=== PATIENT | female | born 1980 | race Caucasian/White ===

== ENCOUNTER 2018-01-16 02:03 | Emergency (ER) | payer BC ==
[~2018-01-16] VITALS: Ht 149.9 cm; Wt 85.3 kg
[~2018-01-16 02:03] MED LIST: ACETAMINOPHEN-1 EAC1 PO; ACYCLOVIR 800800 MG PO; ADVAIR 100-501 EACH INH; ADVAIR HFA115 MCG/21; ANTIVERT25 MG PO; AUGMENTIN 875-1 EACH PO; AVELOX 400 MG400 M1; AZITHROMYCIN 2250 MG PO; BENTYL20 MG PO; BYETTA PEN 11 PENIN1; BYETTA PEN 11 PENIN2; CARVEDILOL25 MG PO; CENTRUM SILVER1 EAC2 PO; CEPHALEXIN 500500 M3 PO; CIPRO250 M1 PO; CITRATE OF MAG296 ML PO; DIFLUCAN150 MG PO; DOXYCYCLINE 10100 MG PO; DUONEB 2.5-0.5 M3 ML INH; EDECRIN PO; FLOMAX0.4 MG PO; FLONASE 0.05%50 MCG NASAL; LEVAQUIN 500 M500 MG PO; LISINOPRIL10 MG PO; MEDROL4 MG; MEDROLDOSEPACK PO; NORCO 5-325 TA1 EAC1 PO; NORCO 5-325 TA1 EACH PO; PHENERGAN 25 MG25 M1 PO; PREDNISONE 10 M10 M1 PO; PREDNISONE 20 M20 M1 PO; PREDNISONE 20 M20 MG PO; PROMETHAZINE D480 ML PO; PROTONIX40 M2 PO; PROVENTIL HFA6.7 G1 INH; SEASONALE1 EACH; SINGULAIR 10 MG10 M1 PO; TUMS PO; TYLENOL325 MG PO; VENTOLIN HFA 1818 GM; VENTOLIN HFA 1818 GM INH; VITAMIN B-12500 MCG PO; VITAMINC500 PO; XANAX 0.5 MG0.5 MG; ZOFRAN ODT4 MG PO; ZOFRAN4 MG PO; ZOLOFT25 MG PO; ZYRTEC10 MG PO; [UNRECOGNIZED DRUG - OTHER] PO
[2018-01-16 02:44] LABS: ABSOLUTE BASOPHILS 0.1 thou/uL (0.0-0.2); ABSOLUTE EOSINOPHILS 0.1 thou/uL (0.0-0.7); ABSOLUTE LYMPHOCYTES 5.5 thou/uL (0.8-5.3); ABSOLUTE MONOCYTES 0.9 thou/uL (0.0-1.2); ABSOLUTE NEUTROPHILS 7.9 thou/uL (1.6-8.1); BASOPHILS 0.6 %; EOSINOPHILS 0.7 %; HEMATOCRIT 37.8 % (37.0-47.0); HEMOGLOBIN 12.4 gm/dL (12.0-15.0); LYMPHOCYTES 38.1 %; MCH 29.4 pg (26.0-34.0); MCHC 32.7 g/dL (28.0-37.0); MCV 90.1 fL (80.0-100.0); MONOCYTES 6.4 %; MPV 7.6 fl. (7.2-11.1); NUCLEATED RBCS 0 /100WBC; PLATELET COUNT* 238 thou/uL (150-400); POLYS 54.2 %; RDW-CV 14.5 % (10.5-14.5); WBC 14.5 thou/uL (4.0-11.0)
[2018-01-16 02:45] LABS: URINE BILIRUBIN NEGATIVE (Negative); URINE BLOOD NEGATIVE (Negative); URINE CLARITY CLEAR; URINE COLOR YELLOW; URINE GLUCOSE-RANDOM NEGATIVE (Negative); URINE KETONES NEGATIVE (Negative); URINE LEUKOCYTES-REFLEX NEGATIVE (Negative); URINE NITRITE-REFLEX NEGATIVE (Negative); URINE PROTEIN NEGATIVE (Negative); URINE SPECIFIC GRAVITY 1.015 (1.005-1.030); URINE UROBILINOGEN 0.2 E.U./dl (0.2-1.0)
[2018-01-16 02:48] LABS: CALCIUM 9.2 mg/dL (8.5-10.1); CREATININE 0.8 mg/dL (0.6-1.3); POTASSIUM 3.7 mmol/L (3.5-5.1)
[2018-01-16 02:59] LABS: ALBUMIN 3.2 g/dL (3.4-5.0); TOTAL BILIRUBIN 0.2 mg/dL (<0.1-1.0); TOTAL PROTEIN 6.5 g/dL (6.4-8.2)
[2018-01-16] MEDS ORDERED: TUSSIONEX PENN115 ML PO (03:28)
[2018-01-16 03:53] VITALS: BP 120/49
== END 2018-01-16 03:56 | disposition home or self-care (01) ==
LOC: M.ERS 02:03
PROVIDERS: Emergency Medicine
DX: J40 Bronchitis, not specified as acute or chronic (principal); J45.909 Unspecified asthma, uncomplicated; I10 Essential (primary) hypertension; E66.9 Obesity, unspecified; K21.9 Gastro-esophageal reflux disease without esophagitis; Z90.49 Acquired absence of other specified parts of digestive tract; Z98.890 Other specified postprocedural states; Z68.38 Body mass index [BMI] 38.0-38.9, adult

== ENCOUNTER 2018-05-26 19:30 | Emergency (ER) | payer BC, OTHER ==
[~2018-05-26] VITALS: Ht 149.9 cm; Wt 81.6 kg
[~2018-05-26 19:30] MED LIST changes: +TUSSIONEX PENN115 ML PO
[2018-05-26] MEDS ORDERED: BENTYL 10 MG CA10 MG PO (19:38)
[2018-05-26 20:13] LABS: CALCIUM 9.5 mg/dL (8.5-10.1); CREATININE 0.8 mg/dL (0.6-1.3); POTASSIUM 4.1 mmol/L (3.5-5.1)
[2018-05-26 20:18] LABS: ALBUMIN 3.8 g/dL (3.4-5.0); TOTAL BILIRUBIN 0.5 mg/dL (<0.1-1.0); TOTAL PROTEIN 7.9 g/dL (6.4-8.2)
[2018-05-26 20:30] LABS: ABSOLUTE BASOPHILS 0.1 thou/uL (0.0-0.2); ABSOLUTE EOSINOPHILS 0.1 thou/uL (0.0-0.7); ABSOLUTE LYMPHOCYTES 3.1 thou/uL (0.8-5.3); ABSOLUTE MONOCYTES 0.9 thou/uL (0.0-1.2); ABSOLUTE NEUTROPHILS 7.1 thou/uL (1.6-8.1); BASOPHILS 0.5 %; EOSINOPHILS 1.1 %; HEMATOCRIT 39.5 % (37.0-47.0); LYMPHOCYTES 27.7 %; MCH 29.5 pg (26.0-34.0); MCHC 32.9 g/dL (28.0-37.0); MCV 89.8 fL (80.0-100.0); MONOCYTES 8.1 %; MPV 8.7 fl. (7.2-11.1); NUCLEATED RBCS 0 /100WBC; PLATELET COUNT* 214 thou/uL (150-400); POLYS 62.6 %; RDW-CV 13.2 % (10.5-14.5); WBC 11.3 thou/uL (4.0-11.0)
[2018-05-26 21:12] LABS: URINE BILIRUBIN NEGATIVE (Negative); URINE BLOOD NEGATIVE (Negative); URINE CLARITY CLEAR; URINE COLOR YELLOW; URINE GLUCOSE-RANDOM NEGATIVE (Negative); URINE KETONES NEGATIVE (Negative); URINE LEUKOCYTES NEGATIVE (Negative); URINE NITRITE NEGATIVE (Negative); URINE PROTEIN NEGATIVE (Negative); URINE SPECIFIC GRAVITY <= 1.005 (1.005-1.030); URINE UROBILINOGEN 0.2 E.U./dl (0.2-1.0)
[2018-05-26] MEDS ORDERED: TRAMADOL 50 MG50 MG PO (21:28)
[2018-05-26] MEDS ORDERED: ZOFRAN ODT4 MG PO (21:28)
[2018-05-26 22:00] VITALS: BP 128/85
== END 2018-05-26 22:01 | disposition home or self-care (01) ==
LOC: M.ERS 19:30
PROVIDERS: Physician Assistant
DX: R19.7 Diarrhea, unspecified (principal); R10.12 Left upper quadrant pain; J45.909 Unspecified asthma, uncomplicated; I10 Essential (primary) hypertension; Z90.49 Acquired absence of other specified parts of digestive tract; K21.9 Gastro-esophageal reflux disease without esophagitis; E66.9 Obesity, unspecified; Z68.36 Body mass index [BMI] 36.0-36.9, adult; Z88.1 Allergy status to other antibiotic agents; Z88.2 Allergy status to sulfonamides

== ENCOUNTER 2019-07-18 09:04 | Emergency (ER) | payer BC ==
[~2019-07-18] VITALS: Ht 149.9 cm; Wt 97.4 kg
[~2019-07-18 09:04] MED LIST changes: +BENTYL 10 MG CA10 MG PO; +TRAMADOL 50 MG50 MG PO
[2019-07-18] MEDS ORDERED: WELLBUTRIN SR100 MG PO (09:09)
[2019-07-18 09:18] LABS: ABSOLUTE BASOPHILS 0.1 thou/uL (0.0-0.2); ABSOLUTE EOSINOPHILS 0.2 thou/uL (0.0-0.7); ABSOLUTE LYMPHOCYTES 2.6 thou/uL (0.8-5.3); ABSOLUTE MONOCYTES 0.6 thou/uL (0.0-1.2); ABSOLUTE NEUTROPHILS 4.4 thou/uL (1.6-8.1); EOSINOPHILS 2.4 %; HEMATOCRIT 36.6 % (37.0-47.0); HEMOGLOBIN 12.3 gm/dL (12.0-15.0); LYMPHOCYTES 32.6 %; MCHC 33.7 g/dL (28.0-37.0); MCV 86.2 fL (80.0-100.0); MONOCYTES 7.6 %; MPV 7.7 fl. (7.2-11.1); NUCLEATED RBCS 0 /100WBC; PLATELET COUNT* 250 thou/uL (150-400); POLYS 56.4 %; RBC 4.25 mil/uL (4.20-5.00); WBC 7.8 thou/uL (4.0-11.0)
[2019-07-18 09:28] LABS: ANION GAP 7 mmol/L (7-16); BUN 8 mg/dL (7-18); CALCIUM 9.3 mg/dL (8.5-10.1); CHLORIDE 104 mmol/L (98-107); CO2 28 mmol/L (21-32); CREATININE 0.8 mg/dL (0.6-1.3); GLUCOSE 89 mg/dL (70-99); POTASSIUM 3.8 mmol/L (3.5-5.1); SODIUM 139 mmol/L (136-145)
[2019-07-18 09:31] LABS: PROTIME 10.3 Seconds (9.20-11.50)
[2019-07-18 09:37] LABS: ALBUMIN 3.5 g/dL (3.4-5.0); ALKALINE PHOSPHATASE 128 U/L (46-116); LIPASE 131 U/L (73-393); SGOT 15 U/L (15-37); SGPT 18 U/L (30-65); TOTAL BILIRUBIN 0.4 mg/dL (<0.1-1.0); TOTAL PROTEIN 7.3 g/dL (6.4-8.2); TROPONIN-I LEVEL <0.06 ng/mL (<0.06)
[2019-07-18] MEDS ORDERED: CARAFATE 1 GM TA1 GM PO (13:09)
[2019-07-18] MEDS ORDERED: OMEPRAZOLE 20 M20 M1 PO (13:09)
[2019-07-18 13:22] VITALS: BP 120/78
--- NOTE | 2019-07-18 16:25 | EKG ---
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 : 1980 Requested By: Antonia Jin Order Number: [id number] MD: Chang Leger Measurements Intervals [place] Rate: 66 P: 9 WI: 149 QRS: -8 QRSD: 85 T: 11 QT: 380 QTc: 399 Interpretive Statements Sinus rhythm Low voltage, precordial leads Abnormal R-wave progression, early transition Compared to ECG 01/13/2016 13:42:56 No significant changes Electronically Signed On 07-18-2019 16:25:48 CDT by Chang Leger [email or web address] <ELECTRONICALLY SIGNED> By: Chang Leger MD, [facility] 07/18/19 1625 7 Chang Leger MD, [facility] /EPI
== END 2019-07-18 13:23 | disposition home or self-care (01) ==
LOC: M.ERS 09:04
PROVIDERS: Personal Emergency Response Attendant
DX: K21.9 Gastro-esophageal reflux disease without esophagitis (principal); Z88.1 Allergy status to other antibiotic agents; Z88.2 Allergy status to sulfonamides; Z88.8 Allergy status to other drugs, medicaments and biological substances; Z90.49 Acquired absence of other specified parts of digestive tract; Z98.890 Other specified postprocedural states

== ENCOUNTER 2019-10-12 20:20 | Emergency (ER) | payer BC ==
[~2019-10-12] VITALS: Ht 149.9 cm; Wt 90.7 kg
[~2019-10-12 20:20] MED LIST changes: +CARAFATE 1 GM TA1 GM PO; +OMEPRAZOLE 20 M20 M1 PO; +WELLBUTRIN SR100 MG PO
[2019-10-12] MEDS ORDERED: NORCO 5-325 TA1 EAC1 PO (21:15)
[2019-10-12 21:19] VITALS: BP 133/85
== END 2019-10-12 21:20 | disposition home or self-care (01) ==
LOC: M.ERS 20:20
DX: M25.532 Pain in left wrist (principal); Z88.1 Allergy status to other antibiotic agents; Z88.2 Allergy status to sulfonamides; Z88.8 Allergy status to other drugs, medicaments and biological substances; Z90.49 Acquired absence of other specified parts of digestive tract; Z98.890 Other specified postprocedural states

== ENCOUNTER 2020-07-11 16:12 | Observation (INO) | payer BC ==
[~2020-07-11] VITALS: Ht 149.9 cm; Wt 108.9 kg
[2020-07-11 16:20] VITALS: BP 132/75
[2020-07-11] MEDS ORDERED: VICODIN HP 10-1 EAC1 PO (16:23)
[2020-07-11] MEDS ORDERED: LORATIDINE 10 M10 M1 PO (16:23)
[2020-07-11] MEDS ORDERED: PROCHAMBER1 EACH INH (16:23)
[2020-07-11 16:58] LABS: ABSOLUTE BASOPHILS 0.1 thou/uL (0.0-0.2); ABSOLUTE EOSINOPHILS 0.1 thou/uL (0.0-0.7); ABSOLUTE MONOCYTES 0.8 thou/uL (0.0-1.2); BASOPHILS 0.9 %; EOSINOPHILS 0.8 %; HEMATOCRIT 33.3 % (37.0-47.0); HEMOGLOBIN 11.2 gm/dL (12.0-15.0); LYMPHOCYTES 27.1 %; MCH 28.6 pg (26.0-34.0); MCHC 33.6 g/dL (28.0-37.0); MONOCYTES 7.5 %; MPV 7.8 fl. (7.2-11.1); NUCLEATED RBCS 0 /100WBC; PLATELET COUNT* 225 thou/uL (150-400); POLYS 63.7 %; RBC 3.92 mil/uL (4.20-5.00)
[2020-07-11 17:08] LABS: CALCIUM 8.6 mg/dL (8.5-10.1); CREATININE 0.9 mg/dL (0.6-1.3); POTASSIUM 3.7 mmol/L (3.5-5.1)
[2020-07-11 17:11] LABS: APTT 25.4 Seconds (25.0-31.3); PROTIME 10.6 Seconds (9.20-11.50)
[2020-07-11 17:18] LABS: ALBUMIN 3.2 g/dL (3.4-5.0); MAGNESIUM 1.8 mg/dL (1.8-2.4); TOTAL BILIRUBIN 0.3 mg/dL (<0.1-1.0); TOTAL PROTEIN 6.7 g/dL (6.4-8.2)
[2020-07-11 20:02] VITALS: BP 141/72
[2020-07-11 20:05] VITALS: BP 135/67
[2020-07-11] MEDS ORDERED: CARVEDILOL25 MG PO (22:30)
[2020-07-11] MEDS ORDERED: FLONASE 0.05%50 MCG NASAL (22:31)
[2020-07-12 00:28] VITALS: BP 131/68
[2020-07-12 05:05] VITALS: BP 131/68
[2020-07-12 05:10] LABS: ABSOLUTE BASOPHILS 0.1 thou/uL (0.0-0.2); ABSOLUTE EOSINOPHILS 0.1 thou/uL (0.0-0.7); ABSOLUTE LYMPHOCYTES 3.4 thou/uL (0.8-5.3); ABSOLUTE MONOCYTES 0.7 thou/uL (0.0-1.2); ABSOLUTE NEUTROPHILS 4.8 thou/uL (1.6-8.1); BASOPHILS 0.7 %; EOSINOPHILS 0.8 %; HEMATOCRIT 32.6 % (37.0-47.0); HEMOGLOBIN 11.1 gm/dL (12.0-15.0); LYMPHOCYTES 37.3 %; MCHC 34.2 g/dL (28.0-37.0); MCV 84.8 fL (80.0-100.0); MONOCYTES 8.2 %; NUCLEATED RBCS 0 /100WBC; PLATELET COUNT* 219 thou/uL (150-400); RBC 3.84 mil/uL (4.20-5.00); RDW-CV 15.7 % (10.5-14.5); WBC 9.1 thou/uL (4.0-11.0)
[2020-07-12 05:15] LABS: CALCIUM 8.6 mg/dL (8.5-10.1); CREATININE 0.8 mg/dL (0.6-1.3); POTASSIUM 3.6 mmol/L (3.5-5.1)
[2020-07-12 08:00] VITALS: BP 146/93
[2020-07-12] MEDS ORDERED: OMEPRAZOLE40 MG PO (08:42)
[2020-07-12 11:10] VITALS: BP 146/93
[2020-07-12] MEDS ORDERED: CARAFATE 1 GM TA1 G1 PO (11:27)
--- NOTE | 2020-07-12 16:12 | EKG ---
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 : 1980 Requested By: Lee Collier Order Number: [id number] MD: Chang Leger Measurements Intervals [place] Rate: 63 P: 7 [place]: 143 QRS: -6 QRSD: 84 T: -2 QT: 398 QTc: 408 Interpretive Statements Sinus rhythm Low voltage, precordial leads Borderline T abnormalities, inferior leads Compared to ECG 07/18/2019 09:08:13 T-wave abnormality now present Electronically Signed On 07-12-2020 16:12:01 CDT by Chang Leger [email or web address] <ELECTRONICALLY SIGNED> By: Chang Leger MD, [facility] 07/12/20 1612 1624 1624 Chang Leger MD, [facility]ACC /EPI
== END 2020-07-12 12:30 | disposition home or self-care (01) ==
LOC: M.ERS 16:12 → M.TBA-ER 17:54 → M.2W 17:54
PROVIDERS: Emergency Medicine Emergency Medical Services; ADMIT Internal Medicine; ATTEND Internal Medicine
DX: R07.89 Other chest pain (principal); E66.01 Morbid (severe) obesity due to excess calories; I42.9 Cardiomyopathy, unspecified; Z68.42 Body mass index [BMI] 45.0-49.9, adult; Z79.899 Other long term (current) drug therapy; Z90.3 Acquired absence of stomach [part of]; Z98.890 Other specified postprocedural states; Z20.828 Contact with and (suspected) exposure to other viral communicable diseases

== ENCOUNTER 2020-10-02 02:59 | Emergency (ER) | payer BC ==
[~2020-10-02] VITALS: Ht 149.9 cm; Wt 108.9 kg
--- NOTE | ~2020-10-02 | EKG ---
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
[~2020-10-02 02:59] MED LIST changes: +CARAFATE 1 GM TA1 G1 PO; +LORATIDINE 10 M10 M1 PO; +OMEPRAZOLE40 MG PO; +PROCHAMBER1 EACH INH; +VICODIN HP 10-1 EAC1 PO
[2020-10-02 03:23] VITALS: BP 132/79
[2020-10-02] MEDS ORDERED: ZPAK PO (03:33)
[2020-10-02] MEDS ORDERED: PREDNISONE 20 M20 M1 PO (03:33)
== END 2020-10-02 03:43 | disposition home or self-care (01) ==
LOC: M.ERS 02:59
DX: U07.1 COVID-19 (principal); K21.9 Gastro-esophageal reflux disease without esophagitis; Z88.2 Allergy status to sulfonamides; Z88.1 Allergy status to other antibiotic agents; Z88.8 Allergy status to other drugs, medicaments and biological substances; Z98.890 Other specified postprocedural states; Z90.49 Acquired absence of other specified parts of digestive tract

== ENCOUNTER 2021-06-19 18:28 | Emergency (ER) | payer BC ==
[~2021-06-19] VITALS: Ht 149.9 cm; Wt 81.7 kg
[~2021-06-19 18:28] MED LIST changes: +ZPAK PO
[2021-06-19] MEDS ORDERED: TOPROL XL25 MG PO (18:35)
[2021-06-19 19:48] LABS: URINE BILIRUBIN NEGATIVE (Negative); URINE BLOOD NEGATIVE (Negative); URINE CLARITY CLEAR; URINE COLOR YELLOW; URINE GLUCOSE-RANDOM NEGATIVE (Negative); URINE KETONES NEGATIVE (Negative); URINE LEUKOCYTES-REFLEX NEGATIVE (Negative); URINE NITRITE-REFLEX NEGATIVE (Negative); URINE PROTEIN NEGATIVE (Negative); URINE SPECIFIC GRAVITY 1.015 (1.005-1.030); URINE UROBILINOGEN 0.2 E.U./dl (0.2-1.0)
[2021-06-19 19:50] LABS: ABSOLUTE BASOPHILS 0.1 thou/uL (0.0-0.2); ABSOLUTE EOSINOPHILS 0.1 thou/uL (0.0-0.7); ABSOLUTE LYMPHOCYTES 2.4 thou/uL (0.8-5.3); ABSOLUTE MONOCYTES 0.7 thou/uL (0.0-1.2); ABSOLUTE NEUTROPHILS 5.9 thou/uL (1.6-8.1); BASOPHILS 0.6 %; EOSINOPHILS 0.8 %; HEMATOCRIT 35.8 % (37.0-47.0); HEMOGLOBIN 11.7 gm/dL (12.0-15.0); LYMPHOCYTES 26.3 %; MCH 27.7 pg (26.0-34.0); MCHC 32.7 g/dL (28.0-37.0); MCV 84.6 fL (80.0-100.0); MONOCYTES 7.6 %; MPV 8.4 fl. (7.2-11.1); NUCLEATED RBCS 0 /100WBC; PLATELET COUNT* 261 thou/uL (150-400); POLYS 64.7 %; RBC 4.23 mil/uL (4.20-5.00); RDW-CV 15.6 % (10.5-14.5); WBC 9.1 thou/uL (4.0-11.0)
[2021-06-19 20:00] LABS: CALCIUM 9.3 mg/dL (8.5-10.1); CREATININE 0.9 mg/dL (0.6-1.3); POTASSIUM 3.9 mmol/L (3.5-5.1)
[2021-06-19 20:10] LABS: ALBUMIN 3.7 g/dL (3.4-5.0); TOTAL BILIRUBIN 0.3 mg/dL (<0.1-1.0); TOTAL PROTEIN 7.4 g/dL (6.4-8.2)
[2021-06-19 22:22] VITALS: BP 131/90
--- NOTE | 2021-06-20 12:19 | EKG ---
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
== END 2021-06-19 22:23 | disposition home or self-care (01) ==
LOC: M.ERS 18:28
PROVIDERS: Emergency Medicine
DX: R07.89 Other chest pain (principal); R00.2 Palpitations; Z98.890 Other specified postprocedural states; Z88.1 Allergy status to other antibiotic agents; Z88.2 Allergy status to sulfonamides